=== PATIENT | male | born 1975 | race Caucasian/White ===

== ENCOUNTER 2024-06-28 07:21 | Emergency (ER) | payer BC, SELFPAY ==
--- OUTSIDE RECORDS SUMMARY | 2024-06-28 07:23 | XMS_ITS | Clinical Summary ---
Author Organization [facility] Address [address] [facility] [address] [place] [address] Phone Care Team Providers Care Wastewater Treatment Engineer Name Role Phone Matti Alejandra MD Primary Care Provider [phone] Allergies No known active allergies Medications ALPRAZolam (XANAX) 0.5 mg tablet Take 1 tablet (0.5 mg total) by mouth nightly as needed for anxiety Active desvenlafaxine ER (PRISTIQ) 100 mg 24 hr tabletIndicatio ns:JULIANNE (generalized anxiety disorder) TAKE ONE TABLET BY MOUTH DAILY 90 tablet 5 4 Active tirzepatide, weight loss, (Zepbound) 10 mg/0.5 mL pen injector ADMINISTER 10 MG UNDER THE SKIN EVERY 7 DAYS 6 mL 5 Active Active Problems Problem Noted Date Diagnosed Date Abnormal weight gain 01/27/2022 Endocrine disorder 02/09/2007 07/28/2022 Essential hypertension 02/09/2007 3 Resolved Problems Problem Noted Date Diagnosed Date Resolved Date Elevated blood pressure read ing without diagnosis of hypertension 02/09/2007 07/28/2022 01/18/2024 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 07/28/2022 01/18/2024 Other and unspecified hyperlipidemia 02/09/200705/202201/18/2024 Unspecified viral infection, in conditions classified elsewhere and of unspecified site 02/09/2007 07/28/2022 01/17/2023 Encounters Date Type Department Care Team Description 05/31/2024 Telephone [facility] Family Medicine at [address] [place] [address] Matti Alejandra MD Prior Auth (PA on Zepbound) from Last 3 Months Immunizations Immunization Administration Dates Next Due Influenza, Quadrivalent, Spl it, Preservative Free, Intramuscular 01/18/2023,12/31/2021 Influenza, Trivalent, Preser vative Free, Intramuscular 01/18/2024 Influenza, Unspecified 01/17/2023(Deferr ed: Patient Refused),12/26/2022,12/26/2020, 020 Pfizer SARS-CoV-2 Monovalent Vaccination (12+ Yrs) PURPLE 05/04/2021 Surgical History Surgery Date Site/Laterality Comments BARIATRIC SURGERY 2013 Medical History Medical History Date Comments Obesity Depression Anxiety Family History Medical History Relation Name Comments No Known Problems Brother Depression Father Father Heart attack Father Father Heart disease Father Father No Known Problems Mother Heart disease Paternal Grandmother Grandmother Hypertension Paternal Grandmother Grandmother Relation Name Status Comments Brother Alive Father Father Mother Alive Paternal Grandmother Grandmother Social History Tobacco Use Types Packs/Day Years Used Date Smoking Tobacco: Never Smokeless Tobacco: Never Tobacco Cessation:Counseling Given: Not Answered AUDIT-C Answer Date Recorded Q1: How often do you have a drink containing alc ohol? Monthly or less 07/19/2023 Q2: How many drinks containi ng alcohol do you have on a typical day when you are drinking? 1 or 2 07/19/2023 Frequency of Binge Drinking Not on file 06/27 PHQ-2 Answer Date Recorded PHQ-2 Total Score (If total score is 3 or more points, staff should administer the PHQ-9) 0 01/18/2024 Sex and Gender Information Value Date Recorded Sex Assigned at Not on file Legal Sex Male 6:41 AM QUALITY ASSURANCE TESTER Gender Identity Male 03/18/2021 2:45 PM QUALITY ASSURANCE TESTER Sexual Orientation Straight 03/18/2021 2: 45 PM QUALITY ASSURANCE TESTER Obstetrics History Last Filed Vital Signs Vital Sign Reading Time Taken Comments Blood Pressure 136/80 02/16/2024 10:57 AM QUALITY ASSURANCE TESTER Pulse 78 02/16/2024 10:57 AM QUALITY ASSURANCE TESTER Temperature 36.5 C (97.7 F) 02/16/2024 10:57 AM QUALITY ASSURANCE TESTER Respiratory Rate 20 02/16/2024 10:57 AM QUALITY ASSURANCE TESTER Oxygen Saturation 99% 02/16/2024 10:57 AM QUALITY ASSURANCE TESTER Inhaled Oxygen Concentration - - Weight 170.1 kg (375 lb) 02/16/2024 10:57 AM QUALITY ASSURANCE TESTER Height 188 cm (6' 2 ) 02/16/2024 10:57 AM QUALITY ASSURANCE TESTER Body Mass Index 48.15 02/16/2024 10:57 AM QUALITY ASSURANCE TESTER Plan of Treatment Health Maintenance Due Date Last Done Comments Colon Cancer Screening-Colonoscopy 1974 Hepatitis C Screening 1974 DTaP/Tdap/Td Vaccine (1 - Tdap) 1985 Hepatitis B Screening 1992 Covid-19 Vaccine ( season) 2023 04/14/2023, 05/04/2021, 05/04/2021, Additional history exists Regular Well Visit/Exam 18-64 07/18/2024 07/19/2023 Depression Screening 01/17/2025 01/18/2024, 01/17/2023, 05/28/2021 Influenza Vaccine Completed 01/18/2024, , 12/26/2022, Additional history exists Pneumococcal vaccine <65 Aged Out No longer eligible based on patient's age to complete this topic Insurance [employer] CHOICE ANTHEM ACCESS CHOICE Care Teams Wastewater Treatment Engineer Relationship Specialty Start Date End Date Matti Alejandra MD PCP - General Family Medicine 05/19/21
--- OUTSIDE RECORDS SUMMARY | 2024-06-28 07:23 | XMS_ITS | Referral Summary ---
Author Organization [facility] Address [address] [facility] [address] [place] [address] Phone Care Team Providers Care Columnist Name Role Phone Matti Alejandra MD Primary Care Provider [phone] Encounters Date Type Department Care Team Description 05/31/2024 Telephone [facility] Family Medicine at [address] [place] [address] Matti Alejandra MD Prior Auth (PA on Zepbound) from Last 3 Months Allergies No known active allergies Medications ALPRAZolam [...] 02/09/2007 07/28/2022 01/18/2024 Other and unspecified hyperlipidemia 02/09/2007 05/0 05/202201/18/2024 Unspecified viral infection, in conditions classified elsewhere and of unspecified site 02/09/2007 07/28/2022 01/17/2023 Immunizations Immunization Administration Dates Next Due Influenza, Quadrivalent, Spl it, Preservative Free, Intramuscular 01/18/2023,12/31/2021 Influenza, Trivalent, Preser vative Free, Intramuscular 01/18/2024 Influenza, Unspecified 01/17/2023(Deferr ed: Patient Refused),12/26/2022,12/26/2020, 020 Pfizer SARS-CoV-2 Monovalent Vaccination (12+ Yrs) PURPLE 05/04/2021 Social History Tobacco Use Types Packs/Day Years [...] on file Legal Sex Male 6:41 AM SIGNAL MAINTAINER Gender Identity Male 03/18/2021 2:45 PM SIGNAL MAINTAINER Sexual Orientation Straight 03/18/2021 2: 45 PM SIGNAL MAINTAINER Last Filed Vital Signs Vital Sign Reading Time Taken Comments Blood Pressure 136/80 02/16/2024 10:57 AM SIGNAL MAINTAINER Pulse 78 02/16/2024 10:57 AM SIGNAL MAINTAINER Temperature 36.5 C (97.7 F) 02/16/2024 10:57 AM SIGNAL MAINTAINER Respiratory Rate 20 02/16/2024 10:57 AM SIGNAL MAINTAINER Oxygen Saturation 99% 02/16/2024 10:57 AM SIGNAL MAINTAINER Inhaled Oxygen Concentration - - Weight 170.1 kg (375 lb) 02/16/2024 10:57 AM SIGNAL MAINTAINER Height 188 cm (6' 2 ) 02/16/2024 10:57 AM SIGNAL MAINTAINER Body Mass Index 48.15 02/16/2024 10:57 AM SIGNAL MAINTAINER Plan of Treatment Not on file Insurance ANTHEM ACCESS CHOICE ANTHEM ACCESS CHOICE Care Teams Columnist Relationship Specialty Start Date End Date Matti Alejandra MD PCP - General Family Medicine 05/19/21
--- OUTSIDE RECORDS SUMMARY | 2024-06-28 07:23 | XMS_ITS | Clinical Summary ---
Author Organization [facility] [employer] Address [address] [facility] [place] [address] Care Team Providers Care Information Systems Security Officer Name Role Phone Nikhil Childress MD Primary Care Provider [phone] Source Comments [facility] [employer],non-owned Affiliates and Associated Physician Practices is amultiple site organization consisting of ambulatory clinics and hospital sitesin [place], [place], [place] and [place]. This disclosure is being madepursuant to the Care Everywhere program and may not contain all information available regarding this patient. Last updated 17.[facility] [employer] Allergies No known active allergies Medications * Be aware that medications may not be up to date on this document. Alwaysverify current medications with the patient. Medication Sig Dispensed Refills Start Date End Date Status buPROPion XL 24hr (WELLBUTRIN-XL) 300 MG tablet Take 300 mg by mouth every morning Active benzonatate (TESSALON) 200 MG capsule Take 1 Cap by mouth 3 times daily as needed for Cough 30 Cap 04/07/2016 Active Social History Tobacco Use Types Packs/Day Years Used Date Smoking Tobacco: Never Sex and Gender Information Value Date Recorded Sex Assigned at Not on file Gender Identity Not on file Sexual Orientation Not on file Last Filed Vital Signs Vital Sign Reading Time Taken Comments Blood Pressure 128/82 04/07/2016 5:58 PM RN ER Pulse 101 04/07/2016 5:58 PM RN ER Temperature 36.8 C (98.3 F) 04/07/2016 5:58 PM RN ER Respiratory Rate 16 04/07/2016 5:58 PM RN ER Oxygen Saturation 98% 04/07/2016 5:58 PM RN ER Inhaled Oxygen Concentration - - Weight 158.8 kg (350 lb) 04/07/2016 5:58 PM RN ER Height 188 cm (6' 2 ) 04/07/2016 5:58 PM RN ER Body Mass Index 44.94 04/07/2016 5:58 PM RN ER Plan of Treatment Health Maintenance Due Date Last Done Comments COLOGUARD (AGES 45-75) - COL ON CA SCREENING 1974 COLON MONITORING 1974 COLONOSCOPY - COLON CA SCREENING 1974 CT COLONOGRAPHY - COLON CA SCREENING 1974 Colorectal Cancer Screening 1974 FIT - COLON CA SCREENING 1974 FLEX SIG - COLON CA SCREENING 1974 LIPID TESTING 1974 HIV SCREENING 1989 HEPATITIS C SCREENING 11/21/1992 DTAP/TDAP/TD VACCINES (1 - Tdap) 1993 HEPATITIS B VACCINE (1 of 3 - 19+ 3-dose series) 1993 COVID-19 VACCINE ( - 2023-2 5 season) 2023 INFLUENZA VACCINE (#1) 2023 DEPRESSION SCREENING 03/28/2024 ZOSTER VACCINE (1 of 2) 2024 HIB VACCINE Aged Out No longer eligi ble based on patient's age to complete this topic HPV VACCINE Aged Out No longer eligi ble based on patient's age to complete this topic MENINGOCOCCAL (Group B) VACC INE SHARED DECISION-MAKING Aged Out No longer eligibl e based on patient's age to complete this topic MENINGOCOCCAL GROUPS A/C/Y/W VACCINE Aged Out No longer eligible b ased on patient's age to complete this topic PNEUMOCOCCAL VACCINE Aged Out No long er eligible based on patient's age to complete this topic Care Teams Information Systems Security Officer Relationship Specialty Start Date End Date Nikhil Childress MD [address] [place] [address] PCP - General Family Medicine 04/07/16
--- OUTSIDE RECORDS SUMMARY | 2024-06-28 07:23 | XMS_ITS | Continuity of Care Document ---
Author Organization [facility] Address [address] [place] [address] Phone Care Team Providers Care Landscape Architect And Planner Name Role Phone Mal Rodriguez MD Unavailable Unavailable Allergies, Adverse Reactions, Alerts Substance Reaction Status Criticality No Known Allergies Active No Inform ation Medications Medication Instructions Dosage Effective Dates (start - stop) Status Comments Vitamin D2 50,000 unit capsule take 1 capsule ([id number]) by oral route every week - Active betamethasone dipropionate 0.05 % Ointment apply by topical route every day a thin layer to the affected area(s) 0.00 - Active Procedures Procedure Date OFFICE/OUTPATIENT VISIT, EST PREV VISIT, EST, AGE 18-39 OFFICE/OUTPATIENT VISIT, EST Advance Directives Directive Yes / No Effective Date File Name No Information Encounters Encounter Description Practice Location Reason(s) For Visit Diagnoses Date Provider Providers Copied on Encounter OFFICE/OUTPA TIENT VISIT, EST [facility], [address] [place], [place] [address] [place], [place], [id number], tel:[phone] [facility] HLP (chief complaint) vitamin D (chief complaint) overweight (chief complaint) Dietary surveillance and counselingOther and unspecified hyperlipidemiaUnspe cified vitamin d deficiencyObesityHy pertension, Unspecified 3 Michael Resendez. [address] [place], [place], [id number] , [place]. tel:[phone] Referring Provider: Mal Rodriguez, [address] [facility], [place], [place], [id number]. tel:[phone] PREV VISIT, EST, AGE 18-39 [facility], [address], [place], [place], [id number], [place] tel:[phone] [facility] PHysical (chief complaint) Dietary surveillance and counselingRoutine Medical ExamContact dermatitis and other eczema, unspecified causeRoutine Medical Exam 2 Michael Resendez. [address], [place], [place], [id number] , [place]. tel:[phone] Referring Provider: Mal Rodriguez, [address], [place], [place], [address]. tel:[phone] Family History Family Member Type Diagnosis Age At Onset Father Problem (finding) Alive and well Brother Problem (finding) Alive and well Mother Problem (finding) Alive and well Payers Payer name Insurance type Covered alliance party ID Authoriza tion(s) No Information Social History Type Description Quantity Date Captured Comments Alcohol Use Details Caffeine Use Details Unknown Tobacco Use Status No Information Smoking Status Never smoker Sex Male Vital Signs Date / Time: Height Weight BMI Pulse Rate Blood Pressure Temperature Respiratory Rate Body Surface Area Head Circumference BMI percentile Pulse Ox Inhaled Ox 6:03 PM 74.00 in 349.50 lbs 44.8 7 kg/m eter (2) 81 /min 138/92 mm[Hg] 98.4 F 20 /min Chief Complaint And Reason For Visit From encounter dated '05/02/2012 16:45'. HLP (chief complaint) vitamin D (chief complaint) overweight (chief complaint) Plan Of Treatment Date Type Action Status No Information History Of Present Illness Encounter Date Complaint History Of Prese nt Illness No Information Instructions Date Instruction Additional Infor mation Dietary counseling Related to Di etary surveillance counseling Decrease caloric intake Related to Dietary surveillance counseling Dietary counseling Related to Di etary surveillance counseling Decrease caloric intake Related to Dietary surveillance counseling Assessments Type Assessment Date No Information Mental Status Date Cognitive Assessment Orientation - [place] ed to time, place, person, situation.
[2024-06-28 07:24] VITALS: BP 172/124; PULSE 100; RESP 14; TEMP 36.4; O2SAT 97
[2024-06-28 07:27] VITALS: BP 157/122; PULSE 94; RESP 16; O2SAT 97
[2024-06-28 07:28] VITALS: BP 172/124; PULSE 94; RESP 14; O2SAT 97
--- OUTSIDE RECORDS SUMMARY | 2024-06-28 07:51 | XMS_ITS | Continuity of Care Document ---
Author Organization [facility] Address [address] [facility] [place] [address] Phone Care Team Providers Care Chief Scientist Name Role Phone Mal Rodriguez MD Unavailable Unavailable Allergies, Adverse Reactions, Alerts Substance Reaction Status Criticality No Known Allergies Active No Inform ation Medications Medication Instructions Dosage Effective Dates (start - stop) Status Comments Vitamin D2 50,000 unit capsule take 1 capsule ([id number]) by oral route every week - Active [...] Copied on Encounter OFFICE/OUTPA TIENT VISIT, EST [facility], [address] [place], [place] [address] [place], [place], [id number], tel:[phone] [facility] HLP (chief complaint) vitamin D (chief complaint) overweight (chief complaint) Dietary surveillance and counselingOther and unspecified hyperlipidemiaUnspe cified vitamin d deficiencyObesityHy pertension, Unspecified 3 Michael Resendez. [address] [place], [place], [address] , [place]. tel:[phone] Referring Provider: Mal Rodriguez, [address] [facility], [place], [place], [id number]. tel:[phone] PREV VISIT, EST, AGE 18-39 [facility], [address] [place], [place], [id number], [place] tel:[phone] [facility] PHysical (chief complaint) Dietary surveillance and counselingRoutine Medical ExamContact dermatitis and other eczema, unspecified causeRoutine Medical Exam 2 Michael Resendez. [address], [place], [place], [id number] , [place]. tel:[phone] Referring Provider: Mal Rodriguez, [address], [place], [place], [id number]. tel:[phone] Family History Family Member Type Diagnosis Age At Onset Father Problem (finding) Alive and well Brother Problem (finding) Alive and well Mother Problem (finding) Alive and well Payers Payer name Insurance type Covered democrat ID Authoriza tion(s) No Information Social History [...] Mental Status Date Cognitive Assessment Orientation - [place] ed to time, place, person, situation.
--- OUTSIDE RECORDS SUMMARY | 2024-06-28 07:51 | XMS_ITS | Clinical Summary ---
Author Organization [facility] Address [address] [facility] [address] [place] [address] Phone Care Team Providers Care Aircraft Engine Assembler Name Role Phone Matti Alejandra MD Primary Care Provider [phone] Allergies No known active allergies Medications ALPRAZolam [...] Type Department Care Team Description 05/31/2024 Telephone [facility] Family Medicine at [address] [place] [address] Matti Alejandra MD Prior Auth [...] on file Legal Sex Male 6:41 AM TYPE PHOTOGRAPHY SUPERVISOR Gender Identity Male 03/18/2021 2:45 PM TYPE PHOTOGRAPHY SUPERVISOR Sexual Orientation Straight 03/18/2021 2: 45 PM TYPE PHOTOGRAPHY SUPERVISOR Obstetrics History Last Filed Vital Signs Vital Sign Reading Time Taken Comments Blood Pressure 136/80 02/16/2024 10:57 AM TYPE PHOTOGRAPHY SUPERVISOR Pulse 78 02/16/2024 10:57 AM TYPE PHOTOGRAPHY SUPERVISOR Temperature 36.5 C (97.7 F) 02/16/2024 10:57 AM TYPE PHOTOGRAPHY SUPERVISOR Respiratory Rate 20 02/16/2024 10:57 AM TYPE PHOTOGRAPHY SUPERVISOR Oxygen Saturation 99% 02/16/2024 10:57 AM TYPE PHOTOGRAPHY SUPERVISOR Inhaled Oxygen Concentration - - Weight 170.1 kg (375 lb) 02/16/2024 10:57 AM TYPE PHOTOGRAPHY SUPERVISOR Height 188 cm (6' 2 ) 02/16/2024 10:57 AM TYPE PHOTOGRAPHY SUPERVISOR Body Mass Index 48.15 02/16/2024 10:57 AM TYPE PHOTOGRAPHY SUPERVISOR Plan of Treatment Health Maintenance Due Date [...] patient's age to complete this topic Insurance [employer] CHOICE ANTHEM ACCESS CHOICE Care Teams Aircraft Engine Assembler Relationship Specialty Start Date End Date Matti Alejandra MD PCP - General Family Medicine 05/19/21
--- OUTSIDE RECORDS SUMMARY | 2024-06-28 07:51 | XMS_ITS | Clinical Summary ---
Author Organization [facility] [employer] Address [address] [facility] [place] [address] Care Team Providers Care Manager Unix Name Role Phone Nikhil Childress MD Primary Care Provider [phone] Source Comments [facility] [employer],non-owned Affiliates and Associated Physician Practices is amultiple site organization consisting of ambulatory clinics and hospital sitesin [place], [place], [place] and [place]. This disclosure is being madepursuant to the Care Everywhere program and may not contain all information available regarding this patient. Last updated 17.[facility] [employer] Allergies No known active allergies Medications * [...] Comments Blood Pressure 128/82 04/07/2016 5:58 PM INBOUND CALL CENTER AGENT Pulse 101 04/07/2016 5:58 PM INBOUND CALL CENTER AGENT Temperature 36.8 C (98.3 F) 04/07/2016 5:58 PM INBOUND CALL CENTER AGENT Respiratory Rate 16 04/07/2016 5:58 PM INBOUND CALL CENTER AGENT Oxygen Saturation 98% 04/07/2016 5:58 PM INBOUND CALL CENTER AGENT Inhaled Oxygen Concentration - - Weight 158.8 kg (350 lb) 04/07/2016 5:58 PM INBOUND CALL CENTER AGENT Height 188 cm (6' 2 ) 04/07/2016 5:58 PM INBOUND CALL CENTER AGENT Body Mass Index 44.94 04/07/2016 5:58 PM INBOUND CALL CENTER AGENT Plan of Treatment Health Maintenance Due Date [...] age to complete this topic Care Teams Manager Unix Relationship Specialty Start Date End Date Nikhil Childress MD [address] [place] [address] PCP - General Family Medicine 04/07/16
--- OUTSIDE RECORDS SUMMARY | 2024-06-28 07:51 | XMS_ITS | Referral Summary ---
Author Organization [facility] Address [address] [facility] [address] [place] [address] Phone Care Team Providers Care Marble And Granite Polisher Name Role Phone Matti Alejandra MD Primary Care Provider [phone] Encounters Date Type Department Care Team Description 05/31/2024 Telephone [facility] Family Medicine at [address] [place] [address] Matti Alejandra MD Prior Auth [...] on file Legal Sex Male 6:41 AM BUILDING MAINTENANCE SUPERVISOR Gender Identity Male 03/18/2021 2:45 PM BUILDING MAINTENANCE SUPERVISOR Sexual Orientation Straight 03/18/2021 2: 45 PM BUILDING MAINTENANCE SUPERVISOR Last Filed Vital Signs Vital Sign Reading Time Taken Comments Blood Pressure 136/80 02/16/2024 10:57 AM BUILDING MAINTENANCE SUPERVISOR Pulse 78 02/16/2024 10:57 AM BUILDING MAINTENANCE SUPERVISOR Temperature 36.5 C (97.7 F) 02/16/2024 10:57 AM BUILDING MAINTENANCE SUPERVISOR Respiratory Rate 20 02/16/2024 10:57 AM BUILDING MAINTENANCE SUPERVISOR Oxygen Saturation 99% 02/16/2024 10:57 AM BUILDING MAINTENANCE SUPERVISOR Inhaled Oxygen Concentration - - Weight 170.1 kg (375 lb) 02/16/2024 10:57 AM BUILDING MAINTENANCE SUPERVISOR Height 188 cm (6' 2 ) 02/16/2024 10:57 AM BUILDING MAINTENANCE SUPERVISOR Body Mass Index 48.15 02/16/2024 10:57 AM BUILDING MAINTENANCE SUPERVISOR Plan of Treatment Not on file Insurance ANTHEM ACCESS CHOICE ANTHEM ACCESS CHOICE Care Teams Marble And Granite Polisher Relationship Specialty Start Date End Date Matti Alejandra MD PCP - General Family Medicine 05/19/21
--- NOTE | 2024-06-28 08:21 | ED.GENADULT ---
HPI - General Adult General Chief complaint: Epistaxis Stated complaint: nose bleed Time Seen by Provider: 06/28/24 07:34 History of Present Illness HPI narrative: 48-year-old male presents to the emergency department for evaluation for epistaxis from the right nostril that started overnight. Patient states that blood for approximately 2 hours. Upon arrival emergency department patient had a nasal clamp placed and this did stop the bleeding. Patient is not on any blood thinners. Patient was anxious appearing on arrival and is hypertensive. Related Data Allergies Allergy/AdvReac Type Severity Reaction Status Date / Time No Known Allergies Allergy Verified 06/28/24 07:21 Review of Systems Review of Systems: All systems reviewed & are unremarkable except as noted in HPI and below PMFSH Family History Family History Mother Patient's mother is in good health Other Family history of coronary artery disease Hypertension Social History Social History Smoking status: Never smoker Alcohol intake: current Exam Narrative: APPEARANCE: Well appearing, no pain, no distress, well-nourished. HEAD: normocephalic, atraumatic. EYES: PERRLA/EOMI, conjunctivae clear. NOSE: No active epistaxis EARS:TMS clear with good light reflex. THROAT: Pharynx clear, no exudate. NECK: Supple. No adenopathy, no masses. RESPIRATORY: Airway patent, respirations nonlabored. Clear to auscultation bilaterally, no rales, rhonchi, wheezing. CARDIOVASCULAR: Regular rate and rhythm without murmurs rubs or gallops. ABDOMINAL: Soft, nontender, nondistended, normal bowel sounds MUSCULOSKELETAL: Moves all extremities. Strength/ROM intact, No edema, No calf tenderness. NEURO: Alert. Cranial nerves II through XII intact. Good gait. Good coordination SKIN: Warm, dry. Normal Color Course Vital Signs Vital signs: Vital Signs Temperature 97.6 F 06/28/24 07:24 Pulse Rate 100 06/28/24 07:24 Respiratory Rate 14 06/28/24 07:24 Blood Pressure 172/124 H 06/28/24 07:24 Pulse Oximetry 97 06/28/24 07:24 Oxygen Delivery Room Air 06/28/24 07:24 Temperature 97.6 F 06/28/24 07:24 Pulse Rate 94 06/28/24 09:19 Respiratory Rate 16 06/28/24 09:19 Blood Pressure 155/89 H 06/28/24 09:19 Pulse Oximetry 97 06/28/24 09:19 Oxygen Delivery Room Air 06/28/24 07:24 Procedures Epistaxis Control right: Epistaxis Control Date: 06/28/24 Epistaxis Control Time: 08:30 Time Out Performed: Yes Nose Prepped With: oxymetazoline Direct Inspection: yes Clots Removed by: blowing nose Cautery Used: none Patient Tolerated Procedure: well and no complications Medical Decision Making MDM Narrative Medical decision making narrative: 48-year-old male presents to the emergency department for epistaxis. Patient did have nasal packing with Afrin placed for approximately 30 minutes. Nasal packing was removed and patient had no continuous bleeding. Bleeding was actually resolved from the nasal clamp. Patient is currently afebrile with no leukocytosis and hemoglobin of 16.6 platelets of 261 with an INR of 1.0 in no acute abnormalities on his CMP. Patient did have an elevated blood pressure when he arrived but this has improved with rest. Patient and family are comfortable the plan for discharge and close follow-up with both primary care physician and with ENT. Differential Diagnosis Differential Diagnosis: Hypertension, epistaxis, anemia, thrombocytopenia Vital Signs Vital Signs: Vital Signs Temperature 97.6 F 06/28/24 07:24 Pulse Rate 100 06/28/24 07:24 Respiratory Rate 14 06/28/24 07:24 Blood Pressure 172/124 H 06/28/24 07:24 Pulse Oximetry 97 06/28/24 07:24 Oxygen Delivery Room Air 06/28/24 07:24 Temperature 97.6 F 06/28/24 07:24 Pulse Rate 94 06/28/24 09:19 Respiratory Rate 16 06/28/24 09:19 Blood Pressure 155/89 H 06/28/24 09:19 Pulse Oximetry 97 06/28/24 09:19 Oxygen Delivery Room Air 06/28/24 07:24 Lab Data Lab results reviewed: Yes I reviewed the patient's lab results. 06/28/24 08:37 06/28/24 08:37 Labs: Lab Results 06/28/24 Range/Units 08:37 WBC 8.0 (4.5-10.0) K/mm3 RBC 5.96 (4.6-6.20) M/mm3 Hgb 16.6 (14.0-18.0) g/dL Hct 48.0 (42.0-52.0) % MCV 80.5 (80-100) fl MCH 27.9 (26-34) pg MCHC 34.6 (32-36) g/dl RDW 12.9 (11.5-14.5) % Plt Count 261 (150-375) k/mm3 MPV 8.9 (7.4-10.4) fl Immature Gran % (Auto) 0.3 (0-0.5) % Neut % (Auto) 64.7 (45.5-73.1) % Lymph % (Auto) 24.6 (18.3-44.2) % Whiteside % (Auto) 8.6 H (2.6-8.5) % Eos % (Auto) 1.3 (0-4.4) % Baso % (Auto) 0.5 (0.2-1.2) % Lymph # (Auto) 1.97 (0.9-3.2) K/mm3 Whiteside # (Auto) 0.7 H (0.1-0.6) K/mm3 Eos # (Auto) 0.1 (0-0.3) K/mm3 Baso # (Auto) 0.0 (0.0-0.1) K/mm3 Abs Immat Gran (auto) 0.02 (0.00-0.031) K/mm3 Absolute Neuts (auto) 5.2 (1.3-6.7) K/mm3 Absolute Nucleated RBC 0.000 (0.0-0.012) K/mm3 Nucleated RBC % 0.0 (0.0-0.2) % PT 13.2 (11.1-14.7) Seconds INR 1.0 APTT 32.0 (22.3-36.8) Seconds Sodium 139 (137-145) mmol/L Potassium 4.1 (3.4-5.0) mmol/L Chloride 105 (98-107) mmol/L Carbon Dioxide 24 (22-30) mmol/L Anion Gap 10 (4-12) mmol/L BUN 20 (9-20) mg/dL Creatinine 0.91 (0.7-1.3) mg/dL Estim Creat Clear Calc 144 ml/min Estimated GFR > 60 (59 - ) Glucose 120 H (65-110) mg/dL Calcium 9.0 (8.4-10.2) mg/dL Total Bilirubin 0.6 (0.2-1.3) mg/dL AST 26 (17-59) U/L ALT 28 (6-50) U/L Alkaline Phosphatase 82 (38-126) U/L Total Protein 7.0 (6.3-8.2) g/dL Albumin 4.3 (3.5-5.1) g/dL Discharge Plan Discharge Clinical Impression: Epistaxis Patient Disposition: Home, Self-Care Condition: Stable Instructions: Antibiotic Form, Nosebleed (ED) Additional Instructions: Nasal clamp as directed for additional nose bleeds. Avoid blowing your nose for the next 24 hours. Have close follow-up with your primary care physician to ensure your blood pressures have normalized. Have close follow-up with ENT. If you have any worsening symptoms then please call or return to the emergency department. Patient Language: Yakut Prescriptions: No Action alprazolam [Xanax] 0.5 mg tablet 0.5 mg PO BID PRN (Reason: anxiety) Qty: 30 1RF amitriptyline 25 mg tablet See Rx Instructions .ROUTE .COMPLEX Qty: 90 1RF Rx Instructions: Take one tablet by mouth once daily ; sertraline 100 mg tablet 100 mg PO DAILY Qty: 30 1RF Follow-up/Referrals: Justyn,Matti Jiménez MD [Primary Care Provider] -
[2024-06-28] MEDS: OXYMETAZOLINE HCL 0.05% NAS 15 ML BTL (*BKC) 1 SPRAY NASAL (08:28)
--- NOTE | 2024-06-28 08:28 | PC.NURSE ---
MD administered afrain to pt
[2024-06-28 08:44] VITALS: BP 173/93; PULSE 85; RESP 14; O2SAT 95
[2024-06-28 08:45] LABS: Basophils Percent Auto 0.5 % (0.2-1.2); Eosinophils Absolute Auto 0.1 K/mm3 (0-0.3); Eosinophils Percent Auto 1.3 % (0-4.4); Hemoglobin 16.6 g/dL (14.0-18.0); Immature Granulocyte Absolute 0.02 K/mm3 (0.00-0.031); Immature Granulocyte Percent A 0.3 % (0-0.5); Lymphocytes Absolute Auto 1.97 K/mm3 (0.9-3.2); Lymphocytes Percent Auto 24.6 % (18.3-44.2); Mean Corpuscular HGB Conc 34.6 g/dl (32-36); Mean Corpuscular Hemoglobin 27.9 pg (26-34); Mean Corpuscular Volume 80.5 fl (80-100); Mean Platelet Volume 8.9 fl (7.4-10.4); Monocytes Absolute Auto 0.7 K/mm3 (0.1-0.6); Monocytes Percent Auto 8.6 % (2.6-8.5); Neutrophils Absolute Auto 5.2 K/mm3 (1.3-6.7); Neutrophils Percent Auto 64.7 % (45.5-73.1); Platelet Count Result 261 k/mm3 (150-375); Red Blood Count 5.96 M/mm3 (4.6-6.20); Red Cell Distribution Width 12.9 % (11.5-14.5)
[2024-06-28 08:53] LABS: Prothrombin Time 13.2 Seconds (11.1-14.7)
[2024-06-28 08:56] LABS: Alanine Aminotransferase 28 U/L (6-50); Albumin Level 4.3 g/dL (3.5-5.1); Alkaline Phosphatase 82 U/L (38-126); Anion Gap 10 mmol/L (4-12); Aspartate Amino Transferase 26 U/L (17-59); Bilirubin,Total 0.6 mg/dL (0.2-1.3); Blood Urea Nitrogen 20 mg/dL (9-20); Carbon Dioxide 24 mmol/L (22-30); Chloride 105 mmol/L (98-107); Estimated CRCL calculation 144 ml/min; Estimated Glomerular Filt Rate > 60; Glucose 120 mg/dL (65-110); Potassium 4.1 mmol/L (3.4-5.0); Sodium 139 mmol/L (137-145)
[2024-06-28 09:19] VITALS: BP 155/89; PULSE 94; RESP 16; O2SAT 97
== END 2024-06-28 09:20 | disposition home or self-care (01) ==
PROVIDERS: Emergency Provider Emergency Medicine; PCP Family Medicine
DX: R04.0 Epistaxis (principal); I10 Essential (primary) hypertension
CPT/HCPCS: 30901; 36415; 80053; 85025; 85610; 85730; 99283; A9270